=== PATIENT | male | born 1945 | race Caucasian/White ===

== ENCOUNTER → 2021-05-19 | Outpatient (CLI) | payer MEDICARE, OTHER | END | disposition home or self-care (01) | LOC: CARD DIAG 14:15 | PROVIDERS: ATTEND Internal Medicine Cardiovascular Disease | DX: I34.0 Nonrheumatic mitral (valve) insufficiency (principal); I48.91 Unspecified atrial fibrillation | CPT/HCPCS: 93306 ==

== ENCOUNTER 2021-06-30 10:29 | Day surgery (SDC) | payer MEDICARE, OTHER ==
[2021-06-30] VITALS (14 sets, daily range): BP systolic 116–156; BP diastolic 63–88
[~2021-06-30] VITALS: Ht 188 cm; Wt 111.5 kg
[2021-06-30] MEDS ORDERED: amiodarone 150mg/dext, iso-os 100 ML IV ONE (10:55)
[2021-06-30] MEDS ORDERED: diphenhydrAMINE 25mg capsule PO ONE (10:55)
[2021-06-30] MEDS ORDERED: atropine 0.1mg/ml 10ml syringe IV ONE (10:55)
[2021-06-30] MEDS ORDERED: morphine 10mg/ml inj. IV ONE (10:55)
[2021-06-30] MEDS ORDERED: MIDAZolam 1mg/ml 10ml vial IV ONE (10:55)
[2021-06-30] MEDS ORDERED: LORazepam 0.5 MG tablet PO ONE (10:55)
[2021-06-30] MEDS ORDERED: HYDR25TA5 PO (11:17)
[2021-06-30] MEDS ORDERED: GABA300C PO (11:17)
[2021-06-30] MEDS ORDERED: DIAZ5TAB5 PO (11:17)
[2021-06-30] MEDS ORDERED: POTA-197 PO (11:17)
[2021-06-30] MEDS ORDERED: ATOR20TA66 PO (11:17)
[2021-06-30] MEDS ORDERED: FLO0.4C PO (11:17)
[2021-06-30] MEDS ORDERED: FORM20VI IH (11:21)
[2021-06-30] MEDS ORDERED: APIX5TAB3 PO (11:21)
[2021-06-30] MEDS ORDERED: ALOG1TAB8 PO (11:21)
[2021-06-30] MEDS ORDERED: LOSA1TAB41 PO (11:21)
[2021-06-30] MEDS ORDERED: PANT40TA54 PO (11:21)
[2021-06-30] MEDS ORDERED: BUDE0.5A11 IH (11:21)
[2021-06-30] MEDS ORDERED: AMIO200T61 PO (11:32)
[2021-06-30] MEDS ORDERED: LOSA25TA41 PO (11:32)
[2021-06-30] MEDS ORDERED: CLOP75TA34 PO (11:32)
[2021-06-30 11:34] LABS: BASOPHILS % (AUTO) 0.4 % (0-1); EOSINOPHILS % (AUTO) 0.4 % (0-6); HEMATOCRIT 35.4 % (42.0-52.0); HEMOGLOBIN 11.5 g/dl (14.0-17.9); LYMPHOCYTES # (AUTO) 0.8 X10'3 (1.1-4.8); MEAN CORPUSCULAR HGB CONC 32.6 g/dL (33.0-36.5); MEAN CORPUSCULAR VOLUME 82.9 FL (78-98); MEAN PLATELET VOLUME 8.6 FL (7.4-10.4); MONOCYTES # (AUTO) 0.7 X10'3 (0-0.9); MONOCYTES % (AUTO) 8.6 % (2-12); NEUTROPHILS # (AUTO) 7.1 X10'3 (1.8-7.7); NEUTROPHILS % (AUTO) 81.6 % (42-75); PLATELET COUNT 142 X10'3 (140-440); RED BLOOD COUNT 4.27 X10'6 (4.70-6.10); RED CELL DISTRIBUTION WIDTH 18.1 % (11.5-14.5); WHITE BLOOD COUNT 8.7 X10'3 (4.5-11.0)
[2021-06-30 11:36] LABS: ALBUMIN 2.9 G/DL (3.4-5.0); ANION GAP 10 (8-16); BLOOD UREA NITROGEN 11 MG/DL (7-18); BUN/CREATININE RATIO 9.3 (5.4-32.0); CALCIUM 8.7 MG/DL (8.5-10.1); CHLORIDE 103 MMOL/L (99-107); CREATININE 1.18 MG/DL (0.60-1.10); GLUCOSE 117 MG/DL (70-104); POTASSIUM 3.4 MMOL/L (3.5-5.1); SODIUM 139 MMOL/L (135-145); TOTAL CARBON DIOXIDE 26.3 MMOL/L (24-32); eGFR 60 ML/MIN
== END 2021-06-30 13:55 | disposition home or self-care (01) ==
LOC: SSTAY O 10:29
PROVIDERS: ATTEND Internal Medicine Cardiovascular Disease
DX: I48.92 Unspecified atrial flutter (principal); I48.19 Other persistent atrial fibrillation; I10 Essential (primary) hypertension; E78.5 Hyperlipidemia, unspecified; E11.9 Type 2 diabetes mellitus without complications; J44.9 Chronic obstructive pulmonary disease, unspecified; G47.30 Sleep apnea, unspecified; I42.9 Cardiomyopathy, unspecified; I25.2 Old myocardial infarction; K21.9 Gastro-esophageal reflux disease without esophagitis; M19.90 Unspecified osteoarthritis, unspecified site; E66.9 Obesity, unspecified; Z68.31 Body mass index [BMI] 31.0-31.9, adult; I25.10 Atherosclerotic heart disease of native coronary artery without angina pectoris; Z87.891 Personal history of nicotine dependence; Z79.01 Long term (current) use of anticoagulants; Z79.899 Other long term (current) drug therapy; Z90.49 Acquired absence of other specified parts of digestive tract; Z95.5 Presence of coronary angioplasty implant and graft; Z98.890 Other specified postprocedural states
CPT/HCPCS: 36415; 80048; 85025; 85610; 92960; 93005; 94799; J0461; J2250; J2270; Q0163

== ENCOUNTER 2021-08-24 13:47 | Emergency (ER) | payer MEDICARE, OTHER ==
[~2021-08-24] VITALS: Ht 188 cm; Wt 113.6 kg
[~2021-08-24 13:47] MED LIST: ALOG1TAB8 PO; AMIO200T61 PO; APIX5TAB3 PO; ATOR20TA66 PO; BUDE0.5A11 IH; CLOP75TA34 PO; DIAZ5TAB5 PO; FLO0.4C PO; FORM20VI IH; GABA300C PO; HYDR25TA5 PO; LOSA1TAB41 PO; LOSA25TA41 PO; PANT40TA54 PO; POTA-197 PO
[2021-08-24 20:00] VITALS: BP 141/85
--- NOTE | 2021-08-24 21:15 | NUR ---
PT AND STATE THEY CANNOT WAIT ANY LONGER FOR READING OF XRAY. CONSULTED WITH YESENIA HYDE WHO STATES THEY WILL CALL THE PT WITH READING IF ANY ABNORMALITIES NOTED. PT VERBALZIED UNDERSTANDING AND LEFT BEFORE OFFICIALLY BEING SEEN BY PROVIDER AND BEFORE ANY PAPERWORK FOR DISCHARGE.
== END 2021-08-24 21:18 | disposition left against medical advice (07) ==
LOC: ER 13:48
DX: Z53.21 Procedure and treatment not carried out due to patient leaving prior to being seen by health care provider (principal)
CPT/HCPCS: 72110; 99284